=== PATIENT | female | born 1990 | race Caucasian/White ===

== ENCOUNTER → 2019-10-19 07:48 | Outpatient (BNVA) | payer SELFPAY | PROVIDERS: Visit Provider Psychiatry & Neurology Psychiatry | DX: F32.9 Major depressive disorder, single episode, unspecified (principal) | CPT/HCPCS: 99214 ==

== ENCOUNTER → 2020-01-24 08:30 | Outpatient (BNVA) | payer SELFPAY | PROVIDERS: Visit Provider Psychiatry & Neurology Psychiatry | DX: F32.9 Major depressive disorder, single episode, unspecified (principal); F41.9 Anxiety disorder, unspecified; F19.10 Other psychoactive substance abuse, uncomplicated | CPT/HCPCS: 99214 ==

== ENCOUNTER → 2020-02-13 14:25 | Outpatient (BNVA) | payer MEDICAID, SELFPAY | PROVIDERS: Visit Provider Nurse Practitioner Family | DX: Z20.828 Contact with and (suspected) exposure to other viral communicable diseases (principal); J06.9 Acute upper respiratory infection, unspecified | CPT/HCPCS: 87635 ==

== ENCOUNTER → 2020-04-26 07:58 | Outpatient (BNVA) | payer SELFPAY | PROVIDERS: Visit Provider Psychiatry & Neurology Psychiatry | DX: F32.9 Major depressive disorder, single episode, unspecified (principal); F41.9 Anxiety disorder, unspecified; F19.10 Other psychoactive substance abuse, uncomplicated | CPT/HCPCS: 99214 ==

== ENCOUNTER → 2020-07-23 08:34 | Outpatient (BNVA) | payer SELFPAY | PROVIDERS: Visit Provider Psychiatry & Neurology Psychiatry | DX: F32.9 Major depressive disorder, single episode, unspecified (principal); F41.9 Anxiety disorder, unspecified; F19.10 Other psychoactive substance abuse, uncomplicated | CPT/HCPCS: 99214 ==

== ENCOUNTER 2022-03-06 13:44 | Outpatient (CLI) | payer MEDICAID, SELFPAY ==
--- NOTE | 2022-03-06 13:54 | MM_ITS ---
WS: [id number] BILATERAL 3D TOMOSYNTHESIS DIGITAL DIAGNOSTIC MAMMOGRAPHY WITH CAD CLINICAL INFORMATION: N64.4 - Mastodynia HISTORY: LEFT breast pain and lump. Bilateral milky nipple discharge. COMPARISON: None. TECHNIQUE: Bilateral CC, MLO, and ML views. FINDINGS: The breasts are composed of heterogeneous fibroglandular density, which can limit the detection of sm all underlying mass lesions. Palpable marker upper outer LEFT breast. Dense underlying parenchymal ti ssue. Ultrasound described below. RIGHT breast is unremarkable. ULTRASOUND BREAST LEFT TECHNIQUE: Ultrasound left breast focused area of concern. CLINICAL INFORMATION: N64.4 - Mastodynia FINDINGS: Ultrasound LEFT breast area of concern at the 2:00 position. Dense underlying parenchymal tissue. No cystic or solid lesions. No lesions to target for biopsy. MM/[place] [id number] IMPRESSION: BI-RADS: 2-Benign FOLLOW UP: Age 40 Recommend annual screening mammography age 40.
== END 2022-03-06 13:45 | disposition home or self-care (01) ==
LOC: RAD 13:46
PROVIDERS: Visit Provider Nurse Practitioner
DX: N64.4 Mastodynia (principal)
CPT/HCPCS: 76642; 77062; G0279

== ENCOUNTER 2022-05-06 13:47 | Emergency (ER) | payer MEDICAID, SELFPAY ==
[2022-05-06 14:02] VITALS: BP 125/77; PULSE 75; TEMP 36.6; O2SAT 97; BMI 33.3
--- NOTE | 2022-05-06 15:06 | CTR_ITS ---
PROCEDURE INFORMATION: Exam: CT Head Without Contrast Exam date and time: 05/06/2022 3:50 PM Age: 32 years old Clinical indication: Injury or trauma; Other: Hit in the forehead with metal chain; Blunt trauma (contusions or hematomas); Injury details: Hit in the forehead with a metal chain. Hematoma, lac, and bruising to forehead. ; Additional info: Head injury with blurred vision TECHNIQUE: Imaging protocol: Computed tomography of the head without contrast. Radiation optimization: All CT scans at this facility use at least one of these dose optimization techniques: automated exposure control; mA and/or kV adjustment per patient size (includes targeted exams where dose is matched to clinical indication); or iterative reconstruction. Other protocol: This patient has received 0 known CTs and 0 known cardiac nuclear medicine studies in the 12 months prior to the current study. COMPARISON: No relevant prior studies available. RADIATION DOSE METRICS: Total DLP (mGy-cm): 1051.19 FINDINGS: Brain: Normal. No hemorrhage. Unremarkable white matter. No mass effect. Cerebral ventricles: No ventriculomegaly. Paranasal sinuses: Visualized sinuses are unremarkable. No fluid levels. Mastoid air cells: Visualized mastoid air cells are well aerated. Bones/joints: Unremarkable. No acute fracture. Soft tissues: Unremarkable. CT/CT head wo con* [id number] IMPRESSION: No acute intracranial abnormality.
--- NOTE | 2022-05-06 16:57 | W.ED.HEATRA ---
HPI - Head Injury General: Chief complaint: Head Injury Stated complaint: vision loss, head injury Time Seen by Provider: 05/06/22 14:59 History of Present Illness: She reports that she is here for head injury. She reports that on Thursday she was loading something in a truck and the big chain hook it came back and hit her in the right side of the head. She denies loss of consciousness but states that it made her almost blacked out and caused her vision to change for a brief minute. States that since that time she has had pain, swelling worsening over the right side forehead right eyebrow and she has noticed some visual changes. She denies any possibility of stating that she has had a tubal ligation and has not had intercourse in 5 to 6 months. Associated symptoms: Deny nausea, neck pain, syncope or vomiting Review of Systems Const: Denies: fever(s), chills or body aches Eyes: Reports: change in vision and blurry vision Card: Denies: chest pain, palpitations, irregular heart rhythm, lightheadedness or syncope Resp: Denies: dyspnea, productive cough or non-productive cough GI: Denies: abdominal pain, nausea or vomiting : Denies: flank pain, difficulty voiding, dysuria, urinary frequency, urinary urgency or urinary hesitancy Musc: Denies: neck pain or back pain Neuro: Denies: headache(s), numbness in extremities or weakness in extremities PFSH ED PFSH: Medical History Anxiety 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 Generalized anxiety disorder MDD (major depressive disorder) Methamphetamine abuse, episodic Other stimulant dependence, uncomplicated Surgical History H/O hernia repair Umbilical 2019 H/O wrist surgery Left Hx of tubal ligation 2019 Family History Grandmother Cancer Diabetes Heart disease Social History Smoking and tobacco status: current every day smoker Alcohol intake: former Desire information about substance/drug rehabilitation?: No Adopted: No Household members: family Housing: House Marital status: Single Number of children: 6 Highest education level completed: GED or Equivalent service: No Current occupational status: unemployed History of recent travel: No Current gender identity: Female Physical Exam Const: COMMON NORMALS: no acute distress, patient oriented x3 and alert GENERAL APPEARANCE: cooperative ORIENTATION/CONSCIOUSNESS: Yes awake, Yes oriented to person, Yes oriented to place and Yes oriented to time Eye: COMMON NORMALS: Equal, round and reactive pupils present, EOMs intact bilaterally and conjunctivae normal GENERAL EYE: appearance normal, both eyes and all related structures ALIGNMENT: Yes alignment normal CONJUNCTIVA: Yes conjunctivae normal SCLERA: sclerae normal PUPIL: Yes Equal, round and reactive pupils present Neck/C-Spine: COMMON NORMALS: full ROM Resp: COMMON NORMALS: normal respiratory effort, No retractions, No use of accessory muscles and clear to auscultation bilaterally EFFORT & INSPECTION: Yes symmetric chest movement AUSCULTATION: clear to auscultation bilaterally Cardio: COMMON NORMALS: regular rate, regular rhythm, S1 normal heart sound present and S2 normal heart sound present RATE: regular rate RHYTHM: regular rhythm HEART SOUNDS: S1 normal heart sound present and S2 normal heart sound present GI: COMMON NORMALS: Normal to inspection, nondistended, normoactive bowel sounds present, Soft to palpation, non-tender, No hepatosplenomegaly present, no masses and no bruits INSPECTION: Yes normal to inspection PALPATION: Yes Soft to palpation and Yes No hepatosplenomegaly present : COMMON NORMALS: Yes no CVA tenderness BLADDER/KIDNEY EXAM: Yes no CVA tenderness Back/Pelvis: COMMON NORMALS: no CVA tenderness Neuro: COMMON NORMALS: patient oriented x3 SENSORIUM/ORIENTATION: Yes alert, Yes oriented to person, Yes oriented to place and Yes oriented to time Psych: COMMON NORMALS: cooperative Skin: NARRATIVE SKIN EXAM: 1 cm scabbed lesion just above the right eyebrow with surrounding ecchymosis and mild swelling. Course Vital Signs: Vital signs: Vital Signs Temperature 97.8 F 05/06/22 14:02 Pulse Rate 75 05/06/22 14:02 Blood Pressure 125/77 05/06/22 14:02 Pulse Oximetry 97 05/06/22 14:02 Oxygen Delivery Me thod 05/06/22 14:02 MDM - Head Injury Medcial Decision Making Consider intracranial abnormality/subdural hematoma, concussion, postconcussive syndrome CT head negative for any acute intracranial abnormality Patient does have swelling just above the right eyebrow with a small scabbed lesion and minimal bruising. Visual preciado are intact. No neurologic changes appreciated. We will treat patient for postconcussive syndrome. Discussed conservative treatment at home including 72 hours of brain rest. Follow-up with primary care provider. Return to the ER for new or worsening symptoms. Lab Data Radiology Impressions Head CT 05/06/22 15:06 IMPRESSION: No acute intracranial abnormality. Discharge Plan Discharge Patient Disposition: Home Clinical Impression: Closed head injury, Post-concussion syndrome Condition: Stable Prescriptions: No Action cephalexin 500 mg capsule 500 mg PO TID Qty: 30 0RF levothyroxine 200 mcg capsule 200 mcg PO DAILY Qty: 90 3RF levothyroxine 300 mcg tablet 300 mcg PO DAILY Qty: 90 3RF Discharge Orders: Discharge ED (Routine); Ordered 05/06/22 Ordered By: Zakia Kennedy Discharge Diet: Usual diet Discharge Activity: Increase activity as tolerated Patient Instructions: Post Concussion Syndrome (ED) Activity Restrictions/Additional Instructions: I recommend conservative treatment at home. Brain rest x72 hours which means limited screen time, limited overhead lighting, limited interaction. I recommend just resting and only getting up to eat or go to the restroom for 72 hours. This allows her brain to rest and heal from the injury. Alternate Tylenol and Motrin as needed for pain. Follow-up with primary care provider as needed. Return to the ER for any new or worsening symptoms. I recommend scheduling a routine eye exam. Coding Level of Care Code ED Aircraft Steel Fabricator for Hugo Medrano
[2022-05-06 17:03] VITALS: RESP 22; O2SAT 95
== END 2022-05-06 17:04 | disposition home or self-care (01) ==
PROVIDERS: Emergency Provider Nurse Practitioner Family
DX: S09.8XXA Other specified injuries of head, initial encounter (principal); F07.81 Postconcussional syndrome; F17.210 Nicotine dependence, cigarettes, uncomplicated; W20.8XXA Other cause of strike by thrown, projected or falling object, initial encounter
CPT/HCPCS: 70450; 99284

== ENCOUNTER → 2023-01-14 11:00 | Outpatient (BNVA) | payer MEDICAID, SELFPAY | PROVIDERS: PCP Nurse Practitioner; Visit Provider Nurse Practitioner | DX: E03.1 Congenital hypothyroidism without goiter (principal); R20.2 Paresthesia of skin | CPT/HCPCS: 80053; 84439; 84443; 84481 ==

== ENCOUNTER → 2023-02-05 12:51 | Outpatient (BNVA) | payer SELFPAY | PROVIDERS: Visit Provider Nurse Practitioner Psychiatric/Mental Health | DX: Z79.899 Other long term (current) drug therapy (principal) | CPT/HCPCS: 80061; 80307; 83036 ==

== ENCOUNTER → 2023-11-10 13:44 | Outpatient (BNVA) | payer SELFPAY | PROVIDERS: PCP Nurse Practitioner; Visit Provider Nurse Practitioner | DX: E03.1 Congenital hypothyroidism without goiter (principal) | CPT/HCPCS: 80053; 84439; 84443; 84481 ==

== ENCOUNTER 2024-12-09 12:49 | Inpatient (IN) | payer OTHER, SELFPAY ==
--- NOTE | 2024-12-09 13:05 | ED.C_ITS ---
HPI - Psych 2 General: Chief Complaint: Psychiatric Symptoms Stated Complaint: 96 Time Seen by Provider: 12/09/24 12:51 Source: patient and police Mode of arrival: ambulatory Limitations: no limitations History of Present Illness: 34-year-old female is brought up by mackenzie rowan under 96-hour hold. Patient states that she had made statements she no longer want to live did not want want to kill herself. Patient does admit to making statements and was placed in a 6-year-old. Patient now states that she does not feel suicidal but did admit to those statements. Associated symptoms: Reports depression and suicidal ideation Related Data Previous Rx's ?Medication ?Instructions ?Recorded bupropion HCl 150 mg 24 hr tablet, 150 mg PO QAM #30 t abs 02/05/23 extended release (Wellbutrin XL) naltrexone 50 mg tablet 50 mg PO .morning #30 tabs 1 04/07/22 quetiapine 50 mg tablet (Seroquel) 50 mg PO BEDTIME #3 0 tabs 02/05/23 hydroxyzine HCl 25 mg tablet 25 mg PO TID PRN itching #30 tabs 11/10/23 triamcinolone acetonide 0.1 % 1 applic topical BID PRN itching 11/10/23 topical cream back and arms #30 grams levothyroxine 100 mcg tablet 100 mcg PO DAILY #30 tabs 11/11/23 liothyronine 5 mcg tablet (Cytomel) 5 mcg PO DAILY #30 tabs 11/11/23 cephalexin 500 mg capsule 500 mg PO QID for skin infec tion 5 09/07/24 days #20 caps mupirocin 2 % topical ointment 1 applic topical BID #1 5 grams 09/07/24 Allergies Allergy/AdvReac Type Severity Reaction Status Date / Time tetracycline Allergy Mild unknown Verified 09/07/24 13:24 Review of Systems 2 Const: Denies: fever(s), chills, body aches or change in appetite ENMT: Denies: throat pain or dental pain Card: Denies: chest pain Resp: Denies: dyspnea GI: Denies: abdominal pain, nausea, vomiting or diarrhea Musc: Denies: neck pain or back pain Skin/Breast: Denies: rash Neuro: Denies: headache(s) Psych: Reports: depression and suicidal ideation [facility] ED 2 PFSH: Medical History Methamphetamine dependence Nicotine dependence due to vaping tobacco product Other stimulant dependence with stimulant-induced mood disorder Post-traumatic stress disorder, chronic 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 Surgical History H/O hernia repair Umbilical 2019 H/O wrist surgery Left Hx of tubal ligation 2019 Family History Grandmother Cancer Diabetes Heart disease Social History Smoking and tobacco/nicotine status: current every day tobacco/nicotine user Alcohol intake: former Substance/Drug Use: current Other substance/drug use details: smoking Adopted: No Household members: family Housing: House Marital status: Single Number of children: 6 Highest education level completed: GED or Equivalent service: No Current occupational status: unemployed Current gender identity: Female Physical Exam 2 Const: COMMON NORMALS: no acute distress, patient oriented x3 and healthy appearing HENMT: COMMON NORMALS: normocephalic and atraumatic HEAD & SCALP: n ormocephalic and atraumatic Eye: COMMON NORMALS: conjunctivae normal CONJUNCTIVA: Yes conjunctivae normal Neck/C-Spine: COMMON NORMALS: full ROM and supple Chest: COMMONS NORMALS: normal inspection of the chest Resp: COMMON NORMALS: normal respiratory effort Cardio: COMMON NORMALS: regular rate, regular rhythm and No murmurs present (Cardio) RATE: regular rate RHYTHM: regular rhythm Extremity: COMMON NORMALS: normal to inspection and full ROM Neuro: COMMON NORMALS: patient oriented x3, moves all extremities and no focal motor deficits Psych: COMMON NORMALS: mental status grossly normal, Normal thought process present and cooperative THOUGHT PROCESS: Normal thought process present Skin: COMMON NORMALS: no rashes or lesions noted and no wounds GENERAL SKIN EXAM: no rashes or lesions noted Course 2 Vital Signs: Vital signs: Vital Signs Temperature 98.4 F 12/09/24 13:10 Pulse Rate 67 12/09/24 13:10 Respiratory Rate 18 12/09/24 13:10 Blood Pressure 142/99 12/09/24 13:10 Pulse Oximetry 97 12/09/24 13:10 MDM - Psych Medical Decision Making Patient presents for suicidal ideation she is brought in on a 96-hour court hold. Patient has been cooperative here blood work here is all normal she is medically cleared I spoke to Dr. Pate psychiatrist who accepted patient admission to the [facility]. Medical Records I reviewed the patient's medical records. Lab Data I reviewed the patient's lab results. 12/09/24 13:35 12/09/24 13:35 Laboratory Results WBC 7.42 10^3/uL (3.29-11.43) 12/09/24 13:35 RBC 4.48 10^6/uL (3.85-5.65) 12/09/24 13:35 Hgb 10.90 g/dL (11.27-16.99) L 12/09/24 13:35 Hct 35.5 % (36-47) L 12/09/24 13:35 MCV 79.2 fl (85-98) L 12/09/24 13:35 MCH 24.3 pg (27-33) L 12/09/24 13:35 MCHC 30.7 g/dL (30-55) 12/09/24 13:35 RDW 15.7 % (12.1-15.1) H 12/09/24 13:35 Plt Count 361 10^3/cmm (157-399) 12/09/24 13:35 MPV 9.0 fL (7.4-10.4) 12/09/24 13:35 Neut % (Auto) 51.5 % 12/09/24 13:35 Lymph % (Auto) 37.7 % 12/09/24 13:35 Sibley % (Auto) 5.8 % 12/09/24 13:35 Eos % (Auto) 3.4 % 12/09/24 13:35 Baso % (Auto) 1.5 % 12/09/24 13:35 Neut # (Auto) 3.82 10^3/uL (1.8-7.7) 12/09/24 13:35 Lymph # (Auto) 2.8 10^3/uL (0.8-4.8) 12/09/24 13:35 Sibley # (Auto) 0.4 10^3/uL (0.2-0.9) 12/09/24 13:35 Eos # (Auto) 0.3 10^3/uL (0.0-0.8) 12/09/24 13:35 Baso # (Auto) 0.1 10^3/uL (0.0-0.1) 12/09/24 13:35 Nucleated RBC % (auto) 0 % 12/09/24 13:35 Nucleated RBCs # 0.0 /100WBC 12/09/24 13:35 No radiology studies performed this visit Discharge Plan Discharge Patient Disposition: Admitted As Inpatient Admit Provider: Vernon Pate Clinical Impression: Suicidal ideation Condition: Stable Coding Level of Care Code ED Staff Training And Development Manager for Hugo Medrano
[2024-12-09 13:10] VITALS: BP 142/99; PULSE 67; RESP 18; TEMP 36.9; O2SAT 97; BMI 33.6
--- OUTSIDE RECORDS SUMMARY | 2024-12-09 13:16 | XMS_ITS | Encounter Summary ---
Author Organization [facility] Address [address] [place] [address] Care Team Providers Care Munitions Handler Name Role Phone Unavailable Primary Care Provider Unavailabl e Encounter Details Date Type Department Care Team (Latest Contact Info) Description 12/24/2006 Outpatient Historical [facility] [place] [address] [place] [address] [place] [address] Mayuri Stanley, ORNITHOLOGY TEACHER [address] [place] [address] Unspecified Hypothyroidism (Primary Dx) Social History Tobacco Use Types Packs/Day Years Used Date Smoking Tobacco: Never Assessed Comments Unknown Sex and Gender Information Value Date Recorded Sex Assigned at Not on file Legal Sex Female 4:44 AM DIRECTOR OF STUDENT FINANCIAL SERVICES Gender Identity Not on file Sexual Orientation Not on file documented as of this encounter Plan of Treatment Not on file documented as of this encounter Procedures Procedure Name Priority Date/Time Associated Diagnosis Comments T4 TOTAL Routine 12/24/2006 12:30 PM CDT TSH Routine 12/24/2006 12:30 PM CDT T4 FREE Routine 12/24/2006 12:30 PM CDT documented in this encounter Results * (ABNORMAL) T4 TOTAL (12/24/2006 12:30 PM CDT) T4 TOTAL 19.4(H) 4.5 - 10.9 mcg/dl INTERFACE SYSTEM 12/24/2006 12:3 0 PM CDT Mayuri Stanley ORNITHOLOGY TEACHER CHEMISTRY ORDERABLES Edited Performing Organization Address [facility] Phone Number INTERFACE SYSTEM Refer to clinic/hospital department * TSH (12/24/2006 12:30 PM CDT) TSH 4.520 0.350 - 5.500 uIU/ml INTERFACE SYSTEM Comment: As of 04 at 3:[address] [facility] has changed the methodology for TSH, and with this change the reference range has changed from 0.49-4.67 to 0.35-5.5 uIU/ml. 12/24/2006 12:3 0 PM CDT Mayuri Stanley ORNITHOLOGY TEACHER CHEMISTRY ORDERABLES Edited Performing Organization Address [facility] Phone Number INTERFACE SYSTEM Refer to clinic/hospital department * T4 FREE (12/24/2006 12:30 PM CDT) T4 FREE 1.39 0.89 - 1.76 ng/dL INTERFACE SYSTEM 12/24/2006 12:3 0 PM CDT Mayuri Stanley ORNITHOLOGY TEACHER CHEMISTRY ORDERABLES Edited Performing Organization Address [facility] Phone Number INTERFACE SYSTEM Refer to clinic/hospital department documented in this encounter Visit Diagnoses Diagnosis Unspecified hypothyroidism- Primary documented in this encounter
--- OUTSIDE RECORDS SUMMARY | 2024-12-09 13:16 | XMS_ITS | Encounter Summary ---
Author Organization [facility] Address [address] [place] [address] Care Team Providers Care Baccarat Manager Name Role Phone Unavailable Primary Care Provider Unavailabl e Encounter Details Date Type Department Care Team (Late st Contact Info) Description 01/04/2007 Outpatient Historical [facility] Diabetic Program Guille [place] [address] [place] [phone] Mayuri Stanley, ANNOUNCER [address] [place] [address] Social History Tobacco Use Types Packs/Day Years Used Date Smoking Tobacco: Never Assessed Comments Unknown Sex and Gender Information Value Date Recorded Sex Assigned at Not on file Legal Sex Female 4:44 AM HATCHERY LABORER Gender Identity Not on file Sexual Orientation Not on file documented as of this encounter Plan of Treatment Not on file documented as of this encounter Visit Diagnoses Not on filedocumented in this encounter
--- OUTSIDE RECORDS SUMMARY | 2024-12-09 13:16 | XMS_ITS | Encounter Summary ---
Author Organization [facility] Address [address] [place] [address] Care Team Providers Care Belt Splicer Name Role Phone Unavailable Primary Care Provider Unavailabl e Encounter Details Date Type Department Care Team (Late st Contact Info) Description 12/24/2006 Outpatient Historical [address] [place] [phone] Social History Tobacco Use Types Packs/Day Years Used Date Smoking Tobacco: Never Assessed Comments Unknown Sex and Gender Information Value Date Recorded Sex Assigned at Not on file Legal Sex Female 4:44 AM SIGNALS COLLECTION TECHNICIAN Gender Identity Not on file Sexual Orientation Not on file documented as of this encounter Plan of Treatment Not on file documented as of this encounter Visit Diagnoses Not on filedocumented in this encounter
--- OUTSIDE RECORDS SUMMARY | 2024-12-09 13:16 | XMS_ITS | Clinical Summary ---
Author Organization [facility] Address [address] [place] [address] Care Team Providers Care Room Server Name Role Phone Unavailable Primary Care Provider Unavailabl e Immunizations Immunization Administration Dates Next Due (TDVAX)(7 YRS UP) TETANUS AN D DIPHTHERIA TOXOIDS, ADSORBED (2 LF OF TETANUS TOXOID AND 2 LF OF DIPHTHERIA TOXOID), 0.5ML (PF), IM 06/23/2002 Influenza Seasonal Unspecified Formulation IM ,01/27/2007 Social History Tobacco Use Types Packs/Day Years Used Date Smoking Tobacco: Never Assessed Comments Unknown Sex and Gender Information Value Date Recorded Sex Assigned at Not on file Legal Sex Female 4:44 AM DOUBLER HELPER Gender Identity Not on file Sexual Orientation Not on file Plan of Treatment Health Maintenance Due Date Last Done Comments DTAP/TDAP/TD VACCINES (2 - Tdap) 06/24/2002 06/24/19 03 HEPATITIS B VACCINES (1 of 3 - 19+ 3-dose series) 2009 HPV/Cotest (21-29) 2011 HPV VACCINES (1 - 3-dose SCDM series) 2017 CERVICAL CANCER SCREENING 01/22/2020 HPV/Cotest (30-65) 01/22/2020 PAP SMEAR 01/22/2020 INFLUENZA VACCINE (#1) 2024 02/09/2008, 2006 [place]
--- OUTSIDE RECORDS SUMMARY | 2024-12-09 13:16 | XMS_ITS | Encounter Summary ---
Author Organization [facility] Address [address] [place] [address] Care Team Providers Care Gluer Machine Setup Operator Name Role Phone Unavailable Primary Care Provider Unavailabl e Encounter Details Date Type Department Care Team (Late st Contact Info) Description 06/08/2006 Outpatient Historical [place] [address] [facility] [address] [place] [phone] Social History Tobacco Use Types Packs/Day Years Used Date Smoking Tobacco: Never Assessed Comments Unknown Sex and Gender Information Value Date Recorded Sex Assigned at Not on file Legal Sex Female 4:44 AM PRODUCT ARCHITECT Gender Identity Not on file Sexual Orientation Not on file documented as of this encounter Plan of Treatment Not on file documented as of this encounter Visit Diagnoses Not on filedocumented in this encounter
--- OUTSIDE RECORDS SUMMARY | 2024-12-09 13:16 | XMS_ITS | Encounter Summary ---
Author Organization [facility] Address [address] [place] [address] Care Team Providers Care Ball Warper Tender Name Role Phone Unavailable Primary Care Provider Unavailabl e Encounter Details Date Type Department Care Team (Latest Contact Info) Description 12/04/2006 Outpatient Historical [facility] Diabetic Program Guille Noble [place] [address] [place] [phone] Mayuri Stanley, JANITORIAL MANAGER [address] [place] [address] DM w/o Complication Type I, Uncontrolled (Primary Dx) Social History Tobacco Use Types Packs/Day Years Used Date Smoking Tobacco: Never Assessed Comments Unknown Sex and Gender Information Value Date Recorded Sex Assigned at Not on file Legal Sex Female 4:44 AM DEPUTY SHERIFF K9 HANDLER Gender Identity Not on file Sexual Orientation Not on file documented as of this encounter Plan of Treatment Not on file documented as of this encounter Visit Diagnoses Diagnosis Type I (juvenile type) diabetes mellitus without mention of complication, uncontrolled- Primary documented in this encounter
--- OUTSIDE RECORDS SUMMARY | 2024-12-09 13:16 | XMS_ITS | Encounter Summary ---
Author Organization [facility] Address [address] [place] [address] Care Team Providers Care Truck Hopper Name Role Phone Unavailable Primary Care Provider Unavailabl e Encounter Details Date Type Department Care Team (Late st Contact Info) Description 11/05/2005 Outpatient Historical [address] [place] [phone] Social History Tobacco Use Types Packs/Day Years Used Date Smoking Tobacco: Never Assessed Comments Unknown Sex and Gender Information Value Date Recorded Sex Assigned at Not on file Legal Sex Female 4:44 AM STOCKROOM KEEPER Gender Identity Not on file Sexual Orientation Not on file documented as of this encounter Plan of Treatment Not on file documented as of this encounter Visit Diagnoses Not on filedocumented in this encounter
--- OUTSIDE RECORDS SUMMARY | 2024-12-09 13:16 | XMS_ITS | Encounter Summary ---
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 [facility] has changed the methodology for TSH, and with this change the reference range has changed from 0.49-4.67 to 0.35-5.5 uIU/ml. 11/05/2005 12:5 6 PM CDT Mirza Loza MD CHEMISTRY ORDERABLES Final Re sult Performing Organization Address [facility] Phone Number INTERFACE SYSTEM Refer to clinic/hospital department * T4 TOTAL (11/05/2005 12:56 PM CDT) T4 TOTAL 9.5 4.5 - 10.9 mcg/dl INTERFACE SYSTEM 11/05/2005 12:5 6 PM CDT Mirza Loza MD CHEMISTRY ORDERABLES Final Re sult Performing Organization Address [facility] Phone Number INTERFACE SYSTEM Refer to clinic/hospital department * T4 FREE (11/05/2005 12:56 PM CDT) T4 FREE 1.76 0.89 - 1.76 ng/dL INTERFACE SYSTEM 11/05/2005 12:5 6 PM CDT us Mirza Loza MD CHEMISTRY ORDERABLES Final Re sult Performing Organization Address [facility] Phone Number INTERFACE SYSTEM Refer to clinic/hospital department documented in this encounter Visit Diagnoses Diagnosis Unspecified hypothyroidism- Primary documented in this encounter
--- NOTE | 2024-12-09 13:27 | PC.NURSE ---
Involuntary 96 hour hold rights read and reviewed with patient. Patient stated I am only staying one night, i am fine. This nurse explained 96 hour hold to patient, Patient verbalized understandings. Copy of rights given to patient. [employer] present during rights.
[2024-12-09 13:43] LABS: Hematocrit 35.5 % (36-47); Hemoglobin 10.90 g/dL (11.27-16.99); Mean Corpuscular HGB Conc 30.7 g/dL (30-55); Mean Corpuscular Hemoglobin 24.3 pg (27-33); Mean Corpuscular Volume 79.2 fl (85-98); Nucleated Red Blood Cells % 0 %; Platelet Count 361 10^3/cmm (157-399); Red Blood Count 4.48 10^6/uL (3.85-5.65); White Blood Count 7.42 10^3/uL (3.29-11.43)
[2024-12-09 14:06] LABS: Alanine Aminotransferase 15 U/L (0-33); Albumin Level 4.3 g/dL (3.5-5.2); Alkaline Phosphatase 70 U/L (35-105); Anion Gap 15.9 (5-19); Aspartate Amino Transferase 23 U/L (0-32); Blood Urea Nitrogen 12 mg/dL (6-20); Calcium 9.1 mg/dL (8.5-10.5); Carbon Dioxide 25 mmol/L (22-29); Chloride 101 mmol/L (98-107); Creatinine Clr Calc Pharmacy 110.8268; Globulin 3.2 g/dL (1.3-4.6); Glucose 98 mg/dL (65-115); Osmolality Calculated 286 mOsm/kg (285-295); Potassium 3.9 mmol/L (3.5-5.1); Sodium 138 mmol/L (136-145); Total Protein 7.5 g/dL (6.6-8.7)
[2024-12-09 14:18] LABS: Acetaminophen < 5.0 ug/mL (10-30); Alcohol Level < 10 mg/dL (0-10); Salicylate < 0.3 mg/dL (3-10)
[2024-12-09 14:59] VITALS: BP 147/86; PULSE 64; RESP 17; TEMP 37.1; O2SAT 100
--- NOTE | 2024-12-09 15:38 | PC.NURSE ---
34 y/o female patient presents to [facility] after she reported to a [employer] worker that she didn't want to live anymore. Patient endorses a remote history of cutting. She denied SA, SI/HI,AVH, anxiety and depression. She states I do not like to take any medication in any form not even tylenol. Patient and her 6 children live with her mother. Patient verbalizes a significant family history of drug addicition and mental illness on both sides. She endorses current daily methamphetamine use and recent alcohol use for the past 2 months. She reports stressors including having grown apart from having any support system.
[2024-12-09 22:00] VITALS: BP 119/77; PULSE 82; RESP 18; TEMP 37.1; O2SAT 98
[2024-12-10 06:00] VITALS: BP 121/83; PULSE 61; RESP 17; TEMP 37.1; O2SAT 98
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
[2024-12-10 12:57] VITALS: BP 112/74; PULSE 68; RESP 16; TEMP 37; O2SAT 98
[2024-12-10 21:08] VITALS: BP 124/84; PULSE 67; RESP 18; TEMP 36.7; O2SAT 100
[2024-12-11 05:14] VITALS: BMI 34.2
[2024-12-11 06:00] VITALS: BP 98/66; PULSE 64; RESP 16; TEMP 37.2; O2SAT 92
[2024-12-11 12:15] LABS: PCP Screen Urine Negative (Negative)
[2024-12-11 13:27] VITALS: BP 123/82; PULSE 71; RESP 16; TEMP 37.1; O2SAT 100
--- NOTE | 2024-12-11 18:04 | W.PM.NPUPNS ---
Subjective NPU Subjective: Patient presented today reporting again that she is ready to go home. She finally provided a urine drug screen and as we suspected, but she had denied she was positive for amphetamines. We discussed any explanation that she had so that. After some pause she tried to justify that she just does occasionally. We discussed how her drug use might be impacting the stressors that she is dealing with right now. She essentially endorsed that the problem was that the machine adjuster leader case trim saw the piece of paper not any issue with her writing it and whether she may have actually felt that way. She continued to downplay any issues and tearfully lead or discharge because she was ready to go. We discussed the difference between being ready to go and wanting to go and it being in her best interest to go. This seemed to be lost on her as she was very childlike and reiterating again and again her being ready to leave and not wanting to be here. She then reported that she was going to leave the area anyway reporting that the reason why she has any issues with getting methamphetamine he had something to do with her mother who she reports is struggling with real methamphetamine addiction. Her emphasis on real. We then reported that her desire was to get out of [place] and that her boyfriend is leaving town on Thursday and she is going with and she needs to pack. We discussed that this was the first time she has mentioned that time constraint. She once again refused to have any real conversation about possible medications. Mental Status Exam MSE Comments: This is an obese white female in hospital scrubs with limited grooming and eye contact. No abnormal movements except for mild psychomotor retardation. Cooperative with exam and mild to moderate distress. Speech was decreased rate and volume. Mood described as fine, affect irritable. Thought process organized. Thought content: Patient denies suicidal or homicidal ideation, there were no delusions reported or noted, she denied any auditory or visual hallucinations. Attention and concentration were intact and memory appeared mostly reliable but none were formally tested. She is alert and oriented x 3. Insight and judgment are limited and impulse control is impaired. Vitals/I&O/Wt Last Vital Signs Temp 99.2 F 12/11/24 19:52 Pulse 78 12/11/24 19:52 Resp 18 12/11/24 19:52 BP 127/88 12/11/24 19:52 Pulse Ox 99 12/11/24 19:52 O2 Del Method Room Air 12/11/24 19:52 Weight last 48 hrs Weight 93.497 kg Data NPU 12/09/24 13:35 12/09/24 13:35 A&P Assessment and plan 1. Post-traumatic stress disorder, chronic: 2. Other stimulant dependence with stimulant-induced mood disorder: 3. Suicidal ideation: 4. Methamphetamine dependence: Plan: This is a 34-year-old white female with a long history of mental health treatment and some addiction issues who presents without a UDS and resistant to being here and pursuing any treatment objectives as she feels this was just an accident. 1. Consider medications. 2. Continue every 15 minute checks for safety. 3. Encourage individual, group and milieu therapy. 4. Obtain collateral information. 5. Observe against the backdrop of the 96-hour hold. 6. Encourage sober living treatment after discharge at the highest level of care to which she is willing to commit. We will obtain a UDS to examine her situation. PDMP PDMP Reviewed: Not Reviewed Involuntary Hold Information Hold Status: Legal Status: 96 Hour Hold Date/Time Hold Expires: 12/15/24 @1320 Attestations NPU Medical Necessity Statement*: Inpatient hospitalization likely necessary in the clinically appropriate intervention at this time. We will monitor/initiate medications and make changes as indicated. Likely length of stay 3-5 days. Coding Level of Care Code Acute Code for [facility] Diagnoses Post-traumatic stress disorder, chronic F43.12 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
--- NOTE | 2024-12-11 18:44 | PC.NURSE ---
nicotine patch removed
[2024-12-11 19:52] VITALS: BP 127/88; PULSE 78; RESP 18; TEMP 37.3; O2SAT 99
[2024-12-12 06:00] VITALS: BP 98/58; PULSE 70; RESP 19; TEMP 36.9; O2SAT 95
[2024-12-12 09:01] LABS: HCG Qualitative Urine. Negative (Negative)
[2024-12-12 13:37] VITALS: BP 104/75; PULSE 79; RESP 18; TEMP 36.8; O2SAT 96
--- NOTE | 2024-12-12 17:35 | W.PM.NPUPNS ---
Subjective NPU Subjective: 34-year-old female admitted with suicidal ideation. The patient stated that she was ready to go home. She had been unable to provide any reason or idea as to what was likely the problem that had been solved and her brief stay here. She had minimized the significance of her amphetamine use. She had continued to blame the child and adolescent psychologist who had admitted her after she had written on a piece of paper that she was feeling suicidal. The patient had stated that she had talked to her mother and her mother had said that she wanted her to come home. This verse writer had asked that the child and adolescent psychologist here be allowed to communicate with her and she stated that she did not wish to provide that information. She continued to refuse any medications as she minimized having any problems with her mood currently. She had continued to perseverate about not wanting to be here and continued to state that she was simply ready to go home. Mental Status Exam MSE Comments: This is an obese white female in hospital scrubs with limited grooming and eye contact. No abnormal movements except for mild psychomotor retardation. She was minimally cooperative with exam and mild to moderate distress. Speech was decreased in rate and variable in volume. Mood described as fine, I am ready to go home. Her affect was irritable and mood incongruent. Thought process organized but concrete in thinking. Thought content: Patient denies suicidal or homicidal ideation, there were no delusions reported or noted, she denied any auditory or visual hallucinations. Attention and concentration were intact and memory appeared mostly reliable but none were formally tested. She is alert and oriented x 3. Insight is feeble. Her judgment is limited and impulse control is impaired. Vitals/I&O/Wt Last Vital Signs Temp 98.2 F 12/12/24 13:37 Pulse 79 12/12/24 13:37 Resp 18 12/12/24 13:37 BP 104/75 12/12/24 13:37 Pulse Ox 96 12/12/24 13:37 O2 Del Method Room Air 12/12/24 13:37 Weight last 48 hrs Weight 93.497 kg Data NPU 12/09/24 13:35 12/09/24 13:35 A&P Assessment and plan 1. Post-traumatic stress disorder, chronic: 2. Other stimulant dependence with stimulant-induced mood disorder: 3. Suicidal ideation: 4. Methamphetamine dependence: Plan: This is a 34-year-old white female with a long history of mental health treatment and some addiction issues who presents without a UDS and resistant to being here and pursuing any treatment objectives as she feels this was just an accident. 1. Patient refusing medications currently to target depression, anxiety and mood fluctuations 2. Continue every 15 minute checks for safety. 3. Encourage individual, group and milieu therapy. 4. Obtain collateral information. 5. Observe against the backdrop of the 96-hour hold. 6. Encourage sober living treatment after discharge at the highest level of care to which she is willing to commit. UDS positive for amphetamine. PDMP PDMP Reviewed: Not Reviewed Involuntary Hold Information Hold Status: Legal Status: 96 Hour Hold Date/Time Hold Expires: 12/15/24 @1320 Attestations NPU Medical Necessity Statement*: Inpatient hospitalization likely necessary in the clinically appropriate intervention at this time. We will monitor/initiate medications and make changes as indicated. The patient's likely length of stay is 3-5 days. Coding Level of Care Code Acute Code for [facility] Diagnoses Post-traumatic stress disorder, chronic F43.12 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
[2024-12-12 20:10] VITALS: BP 109/71; PULSE 96; RESP 18; O2SAT 93
[2024-12-13 06:00] VITALS: BP 100/66; PULSE 60; RESP 15; TEMP 37.1; O2SAT 97
--- NOTE | 2024-12-13 13:12 | W.PM.NPUDCS ---
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 Discharge Activities: Specific discharge activities: educating patient, discussing with cyanide case hardener/social workers/dc planners and documenting/other paperwork Coding Level of Care Code Acute Code for Chg Fwd Diagnoses Post-traumatic stress disorder, chronic F43.12 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
[2024-12-13 13:27] VITALS: BP 100/66; PULSE 60; RESP 15; TEMP 37.1; O2SAT 97
[2024-12-13 13:43] VITALS: BP 104/69; PULSE 69; RESP 14; TEMP 37.1; O2SAT 97
== END 2024-12-13 03:28 | disposition home or self-care (01) | DRG 882 ==
LOC: ER 13:43 → NP 13:44
PROVIDERS: Admitting Provider Psychiatry & Neurology Psychiatry; Emergency Provider Emergency Medicine; PCP Nurse Practitioner; Visit Provider Psychiatry & Neurology Psychiatry
DX: F43.12 Post-traumatic stress disorder, chronic (principal); R45.851 Suicidal ideations; F15.24 Other stimulant dependence with stimulant-induced mood disorder; F17.200 Nicotine dependence, unspecified, uncomplicated; E66.9 Obesity, unspecified; Z68.34 Body mass index [BMI] 34.0-34.9, adult
CPT/HCPCS: 36415; 80053; 80306; 80307; 81025; 85025; 97165; 99285; J9999